=== PATIENT | male | born 1980 | race Caucasian/White ===

== ENCOUNTER 2021-02-27 20:49 | Emergency (ER) | payer BC, SELFPAY ==
[2021-02-27 21:27] VITALS: BP 139/80; PULSE 92; RESP 16; TEMP 36.7; O2SAT 98; BMI 26.7
--- NOTE | 2021-02-27 21:49 | ED.SKABFB ---
HPI - Skin/Abscess/Foreign Bdy General Chief complaint: Animal Bite Stated complaint: BUG BITE INFECTION Time Seen by Provider: 02/27/21 21:49 Source: patient Mode of arrival: ambulatory Limitations: no limitations History of Present Illness MD complaint: insect bite/sting and abscess/boil Onset (ago): week(s) (1) Tetanus up to date: yes Location: L hand (middle finger) Severity: moderate Quality: aching and dull Pain Consistency: constant Relieving factors: none Exacerbating factors: none Context: new medication (took bactrim x 3 days with no relief) Associated symptoms: denies other symptoms Treatments prior to arrival: attempted to drain pus at home Related Data Previous Rx's Medication Instructions Recorded cephalexin 500 mg PO BID 7 Days #14 cap 02/27/21 doxycycline hyclate 100 mg PO BID 7 Days #14 cap 02/27/21 Allergies Allergy/AdvReac Type Severity Reaction Status Date / Time No Known Allergies Allergy Verified 02/27/21 21:26 [No Known Allergies*] Review of Systems Review of Systems: Constitutional : No Fever, No Chills ENT/Mouth : No sore throat, No Rhinorrhea Eyes: No Eye Pain, No Swelling, No Redness Cardiovascular : No Chest Pain, No SOB Respiratory : No Cough, No Sputum Gastrointestinal : No Nausea, No Vomiting, No Diarrhea, No abdominal Pain Genitourinary : No Dysuria, No Hematuria Musculoskeletal : No joint pain, No Myalgias, No Joint Swelling Skin : No Skin Lesions, positive skin rash Neuro : No Weakness, No Numbness, No Headache Psych : No Anxiety, No Depression Heme/Lymph: No Bruising, No Bleeding,No Lymphadenopathy Endocrine : No Polyuria, No Polydipsia All other systems reviewed and are negative [facility] Past Medical History Attestation statement: The following information was validated with the patient. Medical History No active medical problems Social History Social History (Updated 02/27/21 @ 21:53 by Lashawn Trinidad DO) Alcohol intake: current Patient Tobacco Use Status: Never used Tobacco Use of substances other than those prescribed or required for medical reasons: No Advance Directives: No Physical Exam Vital Signs: Vital Signs: Last Vital Signs Temp 98.0 F 02/27/21 21:27 Pulse 92 02/27/21 21:27 Resp 16 02/27/21 21:27 BP 139/80 02/27/21 21:27 Pulse Ox 98 02/27/21 21:27 Body Mass Index 26.7 Appearance: Alert. Oriented X3. No acute distress. Eyes: Pupils equal, round and reactive to light. ENT: Pharynx normal. Neck: Normal inspection. Neck supple. CVS: Normal heart rate and rhythm. Pulses normal. Respiratory: No respiratory distress. Breath sounds normal. Abdomen: Soft and non-tender. Skin: Skin warm and dry. Normal skin color. Normal skin turgor. Extremities: No lower extremity edema. L middle finger dorsum of prox phalange is red area with fluctuance noted 2cm no distal erythema/cellulitis, can range finger no palmar issue and no ttp along flexor tendon Neuro: Oriented X 3. No motor deficit. No sensory deficit. Procedures Abscess I/D Site: hand (middle finger) Side (if applicable): left Local Anesthetic: lidocaine 1% Amount of anesthesia used (mL): 1 Technique: incised with blade Amount of fluid expressed (mL): 3 Sent for culture/gram staining?: No Irrigation: Yes Packing used?: none MDM - Skin/Abscess/Foreign Bdy MDM Narrative Medical decision making narrative: 40 yo male otherwise healthy here with abscess to L middle finger fortunately it has not extended and is not spreading to tendons at this time will need PO abx switched to cephalexin and doxy as well as stop bactrim and I/D abscess Discharge Plan Discharge Clinical Impression: Abscess Patient Disposition: Home, Self-Care Instructions: Abscess (ED), Abscess Incision and Drainage (DC) Additional Instructions: return to ED for any worsening symptoms or concerns shower is okay but no soaking, no pool, no freshwater no hot tubs, pools, ocean x 1 week monitor for redness, fevers, increased pain and swelling stop bactrim Prescriptions: New doxycycline hyclate 100 mg capsule 100 mg PO BID 7 Days Qty: 14 RF: 0 cephalexin 500 mg capsule 500 mg PO BID 7 Days Qty: 14 RF: 0 Stand Alone Forms: Work/School Release
[2021-02-27] MEDS: Lidocaine HCl 1 % MPF 5 ML VIAL SUBCUT (22:08)
[2021-02-27] MEDS: cephALEXin 500 MG CAPSULE PO (22:08)
== END 2021-02-27 22:33 | disposition home or self-care (01) ==
PROVIDERS: Emergency Provider Emergency Medicine
DX: L02.512 Cutaneous abscess of left hand (principal)
CPT/HCPCS: 10060; 99284